=== PATIENT | female | born 1955 | race Caucasian/White ===

== ENCOUNTER 2019-08-02 08:30 | Outpatient (RCR) | payer BC, SELFPAY ==
--- NOTE | 2019-06-15 11:53 | HP.OTEVAL ---
Patient's Visit Information VON ESQUIVEL is a 63 year old F, referred to Occupational Therapy by CAYDEN ENGLAND, with a diagnosis of Arthritis of carpometacarpal CMC joint of bilateral thumbs. Date of Evaluation: 06/14/19 Occupational Therapist: Jessica Diaz, OTR/Elroy, CHT - Subjective Subjective: This 63 year old female was seen for OT eval following a right CMC arthroplasty with MP fusion. May 03 sx date- cast for two weeks and placed orthosis for 4 weeks. Pt arrives today 6 weeks s/p with new orders for trim orthosis to hand based and begin ROM - MP fused. At 10 weeks sp D/C splint and begin strengthening. - ADLs Dressing: Pants, Socks, Shoes Fasteners: Tie shoes, Buttons, Snaps Eating: Use silverware, Cut food Bathing: Handle washcloth & soap Toileting: Manage clothing Kitchen: Chop with knife, Peel fruits & vegetables, Open jars, Open bottle caps, Lift gallon of milk, Pour from pitcher, Take dish out of oven, Load/unload vulcanizer operator - Pain right hand 0 Pain Intensity Range: 0, 4 - ROM Wrist: right 35/20 left 75/70 CMC: right 5 left 20 MP: right NT fussion IP: right 30 left 70 - Strength Strength Comments: not tested will test at later date - Sensation Sensation Comments: denies in finger tips. numb/tingling around incison - Quick DASH-Disab of Arm,Shoulder& Hand Quick DASH Score: 83.3325 - Goals Goal:100% adherence to protocol: Yes Comment: CMC arthroplasty Protocol with MP fusion Goal:Daily scar massage when approriate: Yes Goal:ROM equal to unaffected hand: Yes Comment: wrist and IP of thumb Goal:Manager Student Services/Pinch strength at least 75% of unaffected hand: Yes Goal:No pain with affected hand use: Yes Goal:PIP Circumferences equal to unaffected hand: Yes Goal:Full use of affected hand in daily activities including: Yes Goal:Decrease scar hypersensitivity: Yes - Rehabilitation General Assessment: s/p 6 weeks CMC arthroplasty with MP fusion. Pt was unable to use bilateral hands for daily tasks. Pt would benefit from skilled OT services 1-2x week for 6 weeks to returns pts functional ROM, strength and return pt to PLOF with ADLs and IADl. Today pt was ed. in ROM of wrist/ digits, scar mtg and use of orthsis. pt demo understanding was given handouts and agree to POC. Rehabilitation Potential: Good - Anticipated Interventions Anticipated Interventions: A/AAROM/PROM, Strengthening, Edema Control, Massage, Triggerpoint Release, Sensory Retraining, Modalities, Orthoses, Joint Protection/Energy Conservation, Ergonomic Education, Fine Motor Coord/Frank - Visit Plan Frequency: 1-2x /Week Duration: 6 Weeks TEXT: Thank you for the opportunity to evaluate your patient. For Medicare and Medicare HMO plans, please review the plan of care and approve it. It will need to be FAXED BACK to us at [phone] for Medicare purposes. Please let me know if there are questions or concerns regarding this plan of care. Physician Signature: Date:
--- NOTE | 2019-08-02 10:10 | HP.OTDCSUM ---
HP - OT D/C Summary It has been my pleasure to treat VON ESQUIVEL under orders from CAYDEN ENGLAND, for the diagnosis of Arthritis of carpometacarpal CMC joint of bilateral thumbs for a total of 8 visit(s). Please see the following information for a summary of their discharge status. - Overall Improvement % Improvement: 85 - Objective Objective/Function: right health safety coordinator strength 15# left is 25#. right lateral pinch 2# left 6#. right tripod pinch 1# left 8#- pt is progressing well with her ROM and strength- reports she is able to perform her ADLs 90% of the time. - Goals Patient Goals: Regain Mobility, Regain Strength, Decrease Pain, Improve Fine Motor Skills, Use Hand/Wrist/Arm Normally Again, Sleep Better Goal:100% adherence to protocol: Yes Goal:Daily scar massage when approriate: Yes Goal:ROM equal to unaffected hand: Yes Goal:Cnc Lathe Machine Operator/Pinch strength at least 75% of unaffected hand: Yes Goal:No pain with affected hand use: Yes Goal:PIP Circumferences equal to unaffected hand: Yes Goal:Full use of affected hand in daily activities including: Yes Goal:Decrease scar hypersensitivity: Yes - Plan Plan: D/C - D/C Information Discharge Comments: This 63 year old female was seen for 8 OT visits following a right CMC arthroplasty with MP fusion. pt progressed well but cont. to have pain/ 1-2/10 with increase us of her hand- she has found K-tape has helped decrease her pain. pt has met goals in OT and is D/C If there are questions or concerns regarding this patient's occupational therapy, please fell free to call me at [phone]. Thank you for the referral of this patient. Sincerely, Jessica Diaz, OTR/L, CHT
== END 2019-08-02 19:00 | disposition home or self-care (01) ==
LOC: OT 08:30
PROVIDERS: Family Provider Preventive Medicine Occupational Medicine; PCP Preventive Medicine Occupational Medicine
DX: M18.0 Bilateral primary osteoarthritis of first carpometacarpal joints (principal); M24.60 Ankylosis, unspecified joint
CPT/HCPCS: 97035; 97110; 97140; 97166; 97530

== ENCOUNTER → 2019-10-03 11:03 | Outpatient (CLI) | payer BC, SELFPAY ==
--- NOTE | 2019-10-03 11:08 | RAD_ITS ---
STUDY: X-RAY - LUMBAR SPINE REASON FOR EXAM: Female, 63 years old. Lumbago. Sciatica. TECHNIQUE: Frontal, lateral, and oblique view(s) of the lumbar spine were obtained. COMPARISON: None FINDINGS: There is straightening of the normal lumbar lordosis. There is a levoscoliosis of the lumbar spine. There is multilevel endplate spondylosis of the lumbar vertebrae. There is no acute fracture. The soft tissue structures are unremarkable. RAD/L/S Spine Min 4 Views IMPRESSION: Degenerative changes of the spine, as detailed above. Electronically Signed: Jerry Flor MD at 20:18 EST , Service support ,
== END ==
PROVIDERS: Family Provider Preventive Medicine Occupational Medicine; PCP Preventive Medicine Occupational Medicine; Referring Provider Chiropractor; Visit Provider Chiropractor
DX: M54.42 Lumbago with sciatica, left side (principal); M47.816 Spondylosis without myelopathy or radiculopathy, lumbar region
CPT/HCPCS: 72110

== ENCOUNTER → 2019-11-07 17:38 | Outpatient (CLI) | payer BC, SELFPAY ==
--- NOTE | 2019-11-07 17:48 | MRI_ITS ---
STUDY: MRI LUMBAR SPINE WITHOUT CONTRAST REASON FOR EXAM: Female, 63 years old. Low back and left hip and leg pain. TECHNIQUE: Standardized fat and water weighted pulse sequences were obtained in the sagittal and axial planes. COMPARISON: 10/03/2019 lumbar spine radiographs. FINDINGS: Focal mild to moderate left scoliosis centered at L2 with mild left lateral offset of L2 on its neighbors similar to prior. Sagittal alignment anatomic. No fracture or acute signal changes in the vertebrae, discs, or ligaments. Multilevel mild disc desiccation. Focal loss of disc space height anteriorly and along the right aspect of the L1-2 disc with adjacent endplate degenerative signal changes and irregularity. Only minimal endplate degeneration at L2-3. Otherwise endplates are unremarkable. Conus terminates at the level of the L1 inferior endplate with normal contour and signal. Thecal sac terminates at the upper S2 level. At L1-2 and L2-3, small disc bulge and moderate bilateral facet degeneration cause only mild narrowing with no nerve root impingement. At L3-4, moderate diffuse disc bulge and moderate bilateral facet degeneration with degenerative buckling of ligamentum flavum causes more prominent but still mild narrowing of the spinal canal and foramina. Disc abuts but does not compress the traversing bilateral L4 nerve roots in the subarticular zones. At L4-5, diffuse disc bulge, larger on the left, and moderate bilateral facet degeneration causes moderate narrowing of the left subarticular zone, with disc abutting and mildly posteriorly displacing but not compressing the traversing left L5 nerve root. Only mild narrowing of the right subarticular zone and of the foramina. At L5-S1, vertebral body osteophytes extend into and causes [id number] narrowing of the left foramen, abutting but not compressing the exiting left L5 nerve root. Only mild narrowing of the spinal canal and right foramen. The paraspinal soft tissues are unremarkable. MRI/Spine Lumbar (Routine) IMPRESSION: Degenerative changes with mild mass effect upon the left L5 nerve root at L4-5 and L5-S1 described in detail above. Focal mild to moderate left scoliosis centered at L2 with focal prominent disc degeneration at L1-2. This might cause discogenic pain. Electronically Signed: Shaheed Martinez, at 19:44 EST Tel , Service support ,
== END ==
PROVIDERS: Family Provider Preventive Medicine Occupational Medicine; PCP Preventive Medicine Occupational Medicine; Referring Provider Chiropractor; Visit Provider Chiropractor
DX: M54.42 Lumbago with sciatica, left side (principal); M47.816 Spondylosis without myelopathy or radiculopathy, lumbar region; M41.26 Other idiopathic scoliosis, lumbar region
CPT/HCPCS: 72148

== ENCOUNTER 2019-11-20 13:00 | Outpatient (RCR) | payer BC, SELFPAY ==
--- NOTE | 2019-09-12 12:42 | HP.OTEVAL ---
Patient's Visit Information VON ESQUIVEL is a 63 year old F, referred to Occupational Therapy by CAYDEN ENGLAND, with a diagnosis of bilateral 1st cmc arthrist. Date of Evaluation: 08/31/19 Occupational Therapist: Jessica Diaz, OTR/Elroy, CHT - Subjective Subjective: This 63 year old female was seen for OT eval with dx of bilateral CMC arthritis- s/p cmc arthroplasty. pt arrives with cast on left and increase pain in right since her left had sx- pt states 5/10 pain at times. pt feels pain has increased because she her left hand is in a cast. - ADLs Dressing: Pants, Socks, Shoes Fasteners: Tie shoes, Buttons, Zippers, Snaps, [place] Eating: Use silverware, Cut food, Drink from glass Bathing: Handle washcloth & soap, Wash hair, Squeeze shampoo bottle Toileting: Manage clothing Grooming: computer technologist, Comb hair, Put on makeup, Squeeze toothpaste on, [place] teeth Kitchen: Chop with knife, Peel fruits & vegetables, Open jars, Open bottle caps, Ziplock bags, Lift gallon of milk, Pour from pitcher, Take dish out of oven, Load/unload retail loan originator, Place dish in microwave Household: Vacuum, Sweep/mop, Laundry Miscellaneous: Use cell phone, Start car, Handle money (change), Hold change, Take things out of wallet, Carry shopping bag, Write, Turn pages in book, Use computer keyboard, Open doors/Including car door, Function in drive through window - Pain right hand 4 Pain Intensity Range: 1, 2, 5 left hand 5 - ROM Wrist: right 60/55 CMC: right 10 MP: right fussion IP: right 30 - Strength Math And Sciences Department Chair: right 18# left NT Lateral Pinch: right 4# left NT Tripod Pinch: right 2# left NT Strength Comments: left will be testes at later date - Edema PIP: right 6.0 left 5.5 - Sensation Sensation Comments: denies - Quick DASH-Disab of Arm,Shoulder& Hand Quick DASH Score: 80.3550 - Goals Goal:100% adherence to protocol: Yes Comment: cmc arthroplasty protocol Goal:Daily scar massage when approriate: Yes Goal:ROM equal to unaffected hand: Yes Goal:Math And Sciences Department Chair/Pinch strength at least 75% of unaffected hand: Yes Goal:No pain with affected hand use: Yes Goal:PIP Circumferences equal to unaffected hand: Yes Goal:Full use of affected hand in daily activities including: Yes Goal:Decrease scar hypersensitivity: Yes - Rehabilitation General Assessment: pt arrives with cast on left with no signs of finger swelling- right hand has increase swelling and pain with daily tasks. pt is limited with ADLs at this time due to pain with use of right and cast on left UE. pt would benefit from skilled OT services 1-2x week for 6 weeks to decrease pain and ed. pt on ad. eq. and modification of tasks. Today pt was given ideas to rest her right hand with daily tasks as well as therapist elvia. custom orthosis for increase support with use of right hand- pt demo understanding of use and care and agree to POC. Rehabilitation Potential: Good - Anticipated Interventions Anticipated Interventions: A/AAROM/PROM, Strengthening, Edema Control, Scar Care, Triggerpoint Release, Desensitization, Sensory Retraining, Modalities, Orthoses, Joint Protection/Energy Conservation, Ergonomic Education - Visit Plan Frequency: 1-2x /Week Duration: 4-6 Weeks TEXT: Thank you for the opportunity to evaluate your patient. For Medicare and Medicare HMO plans, please review the plan of care and approve it. It will need to be FAXED BACK to us at [phone] for Medicare purposes. Please let me know if there are questions or concerns regarding this plan of care. Physician Signature: Date:
--- NOTE | 2019-10-16 14:16 | OTREVAL_ITS ---
CAYDEN ENGLAND, It has been my pleasure to treat VON ESQUIVEL over the last 9 visits for bilateral 1st cmc arthrist. Please see the progress note below for an update on the occupational therapy plan of care! Subjective: pt arrives states she is feeling better- is out of orthosis most of the time and reports she is feeling good- Objective/Function: IP 50. left CMC 10*. left cathodic protection technician strength 15#. right cathodic protection technician strength 30# Plan Frequency: 1-2x /Week Duration: 4 Weeks Plan: cont with left hand protocol for cmc arthroplasty Anticipated Interventions Anticipated Interventions: A/AAROM/PROM, Strengthening, Edema Control, Scar Care, Triggerpoint Release, Desensitization, Sensory Retraining, Modalities, Orthoses, Joint Protection/Energy Conservation, Ergonomic Education Please do not hesitate to contact me at [phone] by phone or if you have questions or concerns regarding this new plan of care! Sincerely, Jessica Diaz, OTR/L, CHT
--- NOTE | 2019-10-26 09:48 | HP.PTEVAL ---
Patient's Visit Information VON ESQUIVEL is a 63 year old F referred to Physical Therapy by CAYDEN ENGLAND with a diagnosis of SACROLIAC PAIN. Date of Evaluation: 10/26/19 Physical Therapist: Anthony Arias, PT, Cert MDT, OCS - Visit Plan Frequency: 2x /Week Duration: 4 Weeks Plan: PT INTERVETIONS WITH DLS ,POSTURAL EX'S,LE STRENGTHENING HIP/KNEES. MODLATIES PRN - Subjective Findings: This 63 y/o female presents physical therapy for PT low back pain with radicular symptoms left lateral leg. Patient has had low back pain 2 years. Patient has h/o 2 falls past 2 years has caused increase low back pain.. Patient has seen chirporactor ,massage ,dry needling. Patient plans to get MRI.Pain affects left L-S to lateral lateral.Aggravating factors driving elevation from chair,bending ,lifting,walking ,standing.Alleviating factors as above ,MHP. Patient denies parathesia/tingling. Coughing/sneezing -.Coughing/sneezing-. Pain affects sleeping on sides .Symptoms intermiitant. Patient x-rays DDD . Pain described as ache/sharp pain.Difficulty with stairs. Pain affects function ,ADLS and job demands. Patient pain affects QOL and function. VOCATION: [place]. SOCAIL: - Pain Left Pain Intensity (Out of 10): 3 Pain Intensity Range: 10 Left Lower Extremity Pain Intensity (Out of 10): 3 Pain Intensity Range: 10 - Objective POSTURE: mild foward posture. GAIT: antalgic gait foward posture lateral sway. NEURO: denies parathesia/tingling ,reflexes L3-4,L4-5,L5-S1 2/3. PALAPTION: mild left SI. SYMMTRIES: mild pelvis. FLEXABLITY: hams mild tight. MMT: quad/hip flexion 3+/5,hip abd L 3/5,R 3+/5 ,hams 4-/5,ankle 4-/5. LUMBAR ROM: flexion WFL,extension min loss,sides MIN tight with pain side glides. MUSCULAR ENDURANCE: core poor unable - Special Tests L/S Slump test left side: Negative L/S Slump test right side: Negative L/S Left Straight Leg Raise: Negative L/S Right Straight Leg Raise: Negative Lumbar Standing: Flexion - Mechanical Response: No effect Lumbar Standing: Flexion - Symptoms During Testing: No effect Lumbar Standing: Flexion - Symptoms After Testing: No effect Lumbar Standing: Extension - Mechanical Response: No effect Lumbar Standing: Extension - Symptoms During Testing: Increases Lumbar Standing: Extension - Symptoms After Testing: No worse Lumbar Standing: Right Side Glides - Mechanical Response: No effect Lumbar Standing: Right Side [place] - Symptoms During Testing: Increases Lumbar Standing: Right Side [place] - Symptoms After Testing: No worse Comments:: LEFT SI Lumbar Standing: Left Side [place] - Mechanical Response: No effect Lumbar Standing: Left Side [place] - Symptoms During Testing: No effect Lumbar Standing: Left Side [place] - Symptoms After Testing: No effect - Goals Goal 1:: Independant with HEP Goal Time Frame: 4-6 Weeks Goal 2:: Improve quality of gait with less anatalgic gait pattern 75% of the time. Goal Time Frame: 4-6 Weeks Goal 3:: Patient to improve strength BLE LE TO 4/5 EXCEPT hips to 4-/5 to improve gait and function. Goal Time Frame: 4-6 Weeks Goal 4:: Patient to decrease pain lumbar pain 50% or > to improve QOL Goal Time Frame: 4-6 Weeks Goal 5:: Patient to back owestrey score by 5 points or > to improve QOL. Goal Time Frame: 4-6 Weeks - Rehabilitation Potential Physical Therapy Diagnosis: This patient has lumbar radiculoapathy with weakness in legs especially in hips causes deficits with alteranting walking ,pain with standing,walking impairs job demands and houswork chores. Rehabilitation Potential: Good - Anticipated Interventions Patient/Client Instruction: Educate patient on: Condition, Plan of Care For the Purpose of:: To decrease pain, To increase ROM, To improve muscle performance and motor function, To improve ability to perform ADL's, To increase tolerance to activity/condition/position, To improve ability of physical actions for home/community/work/leisure, To improve health of tissue, To decrease soft tissue restriction, To increase flexibility/ROM, To improve ability to perform tasks related to life management Therapeutic Exercise to Include: Strength training, Body mechanics, Postural training, Flexibilty training, Dynamic Lumbar Stabilization Comment: BLE QUADS/HAMS/HIP For the Purpose of:: To decrease pain, To increase ROM, To improve muscle performance and motor function, To improve ability to perform ADL's, To increase tolerance to activity/condition/position, To improve ability of physical actions for home/community/work/leisure, To improve gait and locomotor functions, To improve health of tissue, To decrease soft tissue restriction, To increase flexibility/ROM, To reduce risk of recurrence, To improve ability to perform tasks related to life management TENS: Yes IF ES: Yes Cryotherapy (ice pack, ice massage): Yes Thermo therapy (hot pack): Yes Ultrasound (thermal/non thermal): Yes For the Purpose of:: To decrease pain, To increase ROM, To improve nutrient delivery to tissue, To increase oxygenation perfusion, To improve health of tissue, To decrease soft tissue restriction Thank you for the opportunity to evaluate your patient. For Medicare and Medicare HMO plans, please review the plan of care and approve it. It will need to be FAXED BACK to us at [phone] for Medicare purposes. For Medicare only, by signing this I certify the plan of care. Please let me know if there are questions or concerns regarding this plan of care. Physician Signature: Date:
--- NOTE | 2019-11-20 13:28 | HP.PTDCSUM ---
HP - PT D/C Summary It has been my pleasure to treat VON ESQUIVEL under orders from CAYDEN ENGLAND, for the diagnosis of SACROLIAC PAIN for a total of 5 visit(s). Discharge Date: Please see the following information for a summary of their discharge status. - Subjective Subjective: Doing alot better. stronger. sore in hips - Pain Left Pain Intensity (Out of 10): 3 Left Lower Extremity Pain Intensity (Out of 10): 0 - Overall Improvement % Improvement: 100 - Objective Objective/Function: POSTURE: mild foward posture. GAIT: reciprocal pattern. NEURO: INTACT. MMT: QUADS/HAMS 4/5,HIP FLEXION 4-/5,HIP ABD 3+/5. LUMBAR ROM: FLEXION/EXTENSION WFL - Goals Goal 1:: Independant with HEP Goal Progress: Goal Met Goal 2:: Improve quality of gait with less anatalgic gait pattern 75% of the time. Goal Progress: Goal Met Goal 3:: Patient to improve strength BLE LE TO 4/5 EXCEPT hips to 4-/5 to improve gait and function. Goal Progress: Goal Met Goal 4:: Patient to decrease pain lumbar pain 50% or > to improve QOL Goal Progress: Goal Met Goal 5:: Patient to back owestrey score by 5 points or > to improve QOL. Goal Progress: Goal Met - Plan Plan: D/C TO HEP - D/C Information If there are questions or concerns regarding this patient's physical therapy, please feel free to call me at [phone]. Thank you for the referral of this patient. Sincerely, Anthony Arias, PT, Cert MDT, OCS
--- NOTE | 2019-11-23 08:28 | HP.OTDCSUM_ITS ---
HP - OT D/C Summary It has been my pleasure to treat VON ESQUIVEL under orders from CAYDEN ENGLAND, for the diagnosis of bilateral 1st cmc arthrist for a total of 12 visit(s). Please see the following information for a summary of their discharge status. - Overall Improvement % Improvement: 60 - Objective Objective/Function: IP 50. left CMC 10*. left agricultural agent strength 15#. right agricultural agent strength 30# - Goals Patient Goals: Regain Mobility, Regain Strength, Decrease Pain, Decrease Swelling/Stiffness, Improve Fine Motor Skills, Use Hand/Wrist/Arm Normally Again Goal:100% adherence to protocol: Yes Goal:Daily scar massage when approriate: Yes Goal:ROM equal to unaffected hand: Yes Goal:Rn Gynecology/Pinch strength at least 75% of unaffected hand: Yes Goal:No pain with affected hand use: Yes Goal:PIP Circumferences equal to unaffected hand: Yes Goal:Full use of affected hand in daily activities including: Yes Goal:Decrease scar hypersensitivity: Yes - Plan Plan: cont with left hand protocol for cmc arthroplasty - D/C Information If there are questions or concerns regarding this patient's occupational therapy, please fell free to call me at [phone]. Thank you for the referral of this patient. Sincerely, Jessica Diaz, OTR/L, CHT
--- NOTE | 2019-11-23 08:29 | HP.OT.NRP ---
HP - Discharge Summary - Patient Information VON ESQUIVEL was seen in my office for initial evaluation on 08/31/19. The following Plan of Care was established for this patient: Initial Frequency: 1-2x /Week Initial Duration: 4 Weeks Plan: cont with left hand protocol for cmc arthroplasty - Anticipated Interventions Anticipated Interventions: A/AAROM/PROM, Strengthening, Edema Control, Scar Care, Triggerpoint Release, Desensitization, Sensory Retraining, Modalities, Orthoses, Joint Protection/Energy Conservation, Ergonomic Education This patient was last seen in our office 11/06/19. Pertinent comments regarding their Occupational therapy will appear below: pt was seen for 12 OT visits- she cancelled her last scheduled apt. she called in on 11/09/19 to say she will not be needing therapy. Pt progressed well following left CMC arthroplasty with MP fussion. pt met goals and reports she is ind. with ADls and IADLs. Pt D/C at this time. At this point I will be discontinuing this patient from occupational therapy. I would be happy to see this patient again in the future if found appropriate by the physician. Thank you! Jessica Diaz, OTR/L, CHT
== END 2019-11-20 19:00 | disposition home or self-care (01) ==
LOC: PT 13:00
PROVIDERS: Family Provider Preventive Medicine Occupational Medicine; PCP Preventive Medicine Occupational Medicine
DX: M18.0 Bilateral primary osteoarthritis of first carpometacarpal joints (principal)
CPT/HCPCS: 97035; 97110; 97140; 97162; 97166; 97530

== ENCOUNTER 2021-01-29 09:04 | Outpatient (RCR) | payer MEDICARE, OTHER, SELFPAY ==
[2021-01-29] MEDS: COVID-19 VACC, MRNA(PFIZER)/PF 30 MCG/0.3 ML SYRINGE IM (15:17)
[2021-02-19] MEDS: COVID-19 VACC, MRNA(PFIZER)/PF 30 MCG/0.3 ML SYRINGE IM (14:58)
== END 2021-04-28 23:59 ==
LOC: IMMUN 09:04
PROVIDERS: PCP Preventive Medicine Occupational Medicine; Referring Provider Family Medicine; Visit Provider Family Medicine
DX: Z23 Encounter for immunization (principal)
CPT/HCPCS: 0001A; 0002A; 91300